=== PATIENT | male | born 1955 | race Caucasian/White ===

== ENCOUNTER → 2017-09-05 | Outpatient (CLI) | payer OTHER ==
--- NOTE | 2017-09-05 13:50 | XR ---
EXAMINATION TYPE: XR cervical spine limited DATE OF EXAM: 09/05/2017 TECHNIQUE: Frontal, lateral,and open mouth view of the cervical spine are obtained. HISTORY: Cervicalgia M54.2 history of fracture at age 16 per patient. COMPARISON: None FINDINGS: The cervical spine is visualized in its entirety from C1 thru the top of T1 level, there i s grade 1 retrolisthesis of C4 on C5 without evidence of acute fracture or dislocation. The pre-vert ebral soft tissue appears within normal limits. The C1-C2 articulation is within normal limits on th e open mouth view. There is ossific fusion or bridging osteophyte involving spinous processes at C4-C 5 level. Vertebral body heights are maintained. There is mild disc space narrowing C3-C4 levels. There is mild to moderate disc space narrowing and spurring C4-C5 level. There is moderate disc space narrowing wi th mild to moderate spurring C5-C6 level. There is mild disc space narrowing C6-C7 level. C7-T1 level suboptimally evaluated without dedicated swimmer's view. There is multilevel uncovertebral facet art hropathy, left greater than right most prominent mid cervical spine. Some vascular calcification left carotid bulb is felt present in the overlying soft tissue. IMPRESSION: Spondylolisthesis C4-C5 level. Multilevel degenerative changes as detailed above
== END | disposition home or self-care (01) ==
LOC: RADXRMAIN 12:49
PROVIDERS: ATTEND Family Medicine
DX: M43.16 Spondylolisthesis, lumbar region (principal); M47.816 Spondylosis without myelopathy or radiculopathy, lumbar region
CPT/HCPCS: 72040

== ENCOUNTER → 2017-09-27 | Outpatient (CLI) | payer OTHER ==
[2017-09-27 13:03] LABS: HCT 37.4 % (39.0-53.0); HGB 12.3 gm/dL (13.0-17.5); MCH 27.5 pg (25.0-35.0); MCHC 32.9 g/dL (31.0-37.0); MCV 83.6 fL (80.0-100.0); Platelet Count 319 k/uL (150-450); RBC 4.48 m/uL (4.30-5.90); RDW 13.9 % (11.5-15.5); WBC 7.3 k/uL (3.8-10.6)
[2017-09-27 13:16] LABS: Anion Gap 12 mmol/L; Blood Urea Nitrogen 14 mg/dL (9-20); Carbon Dioxide 26 mmol/L (22-30); Chloride 102 mmol/L (98-107); Glucose 123 mg/dL (74-99); Potassium 4.6 mmol/L (3.5-5.1); Sodium 140 mmol/L (137-145)
== END | disposition home or self-care (01) ==
LOC: LABWHC1 12:18
PROVIDERS: ATTEND Internal Medicine Clinical Cardiac Electrophysiology
DX: I47.1 Supraventricular tachycardia (principal); I10 Essential (primary) hypertension
CPT/HCPCS: 36415; 80048; 85027

== ENCOUNTER 2017-10-06 10:45 | Day surgery (SDC) | payer OTHER ==
[2017-09-26 14:24] VITALS: BMI 30.7
[2017-10-06] MEDS: SODIUM CHLORIDE 0.9% 1,000 ML IV SCH (11:19)
[2017-10-06 11:35] LABS: Glucose,Whole Blood 178 mg/dL (75-99)
[2017-10-06] MEDS ORDERED: MIDAZOLAM 2 MG/2 ML VIAL ONE (12:50)
[2017-10-06] MEDS ORDERED: fentaNYL (PF) 50 MCG/ML 2 ML AMP ONE (12:50)
[2017-10-06] MEDS ORDERED: ISOPROTERENOL 250 MCG/1.25 ML SYR IV ONE (12:50)
[2017-10-06] MEDS ORDERED: LIDOCAINE 2% INJ 20 MG/ML SQ ONE ×3 (13:28→13:50)
[2017-10-06] MEDS ORDERED: HEPARIN SODIUM (1,000 UNIT/ML) 1,000 UNIT in SODIUM CHLORIDE 0.9% 1,000 ML IRRIGATION ONE (15:06)
[2017-10-06 15:55] LABS: Glucose,Whole Blood 123 mg/dL (75-99)
[2017-10-06] MEDS ORDERED: ACETAMINOPHEN IV (For NPO) 1,000 MG/100 ML VIAL IVPB ONE (15:56)
[2017-10-06] MEDS ORDERED: ACETAMINOPHEN TAB 325 MG TAB PO PRN (16:29)
[2017-10-06 16:50] VITALS: RESP 18
[2017-10-06] MEDS ORDERED: ACETAMINOPHEN IV (For NPO) 1,000 MG in EMPTY BAG 1 BAG IVPB ONE (17:00)
[2017-10-06 17:14] LABS: Glucose,Whole Blood 150 mg/dL (75-99)
[2017-10-06] MEDS: LACTATED RINGERS 1,000 ML IV SCH ×2 (18:19→18:20)
[2017-10-06] MEDS: HYDROcodone/APAP 5-325MG 1 EACH TAB PO PRN (18:41)
[2017-10-06] MEDS: METOPROLOL TARTRATE 25 MG TAB PO SCH (20:09)
[2017-10-06] MEDS: metFORMIN 500 MG TAB PO SCH (20:09)
--- NOTE | 2017-10-06 20:52 | CE ---
CARDIAC ELECTROPHYSIOLOGY REPORT This is a 62-year-old male patient who has recurrent supraventricular tachycardia, adenosine-sensitive, and he was brought in for diagnostic EP study and radiofrequency ablation. His diltiazem and metoprolol were discontinued. Patient was brought to the EP lab in a fasting state. Written informed consent was obtained prior to the procedure. The right and left groins were prepped and draped as per protocol. Venous sheaths were placed. The left axillary vein was also accessed and the coronary sinus catheter was placed via an appropriately-sized sheath. High right atrial catheter, HIS bundle catheter, and RV catheter were placed and later, as the tachycardia was very easily inducible and sometimes spontaneously inducible, a mapping ablation catheter was also placed in the right heart. Sinus cycle length 573 milliseconds, AK interval 160 milliseconds, QRS 88 milliseconds, QT 320 milliseconds. AH interval 86 milliseconds. HV interval 31 milliseconds. The tachycardia was very easily inducible with atrial pacing. Tachycardia cycle length of about 430 milliseconds. Ventricular pacing of VA/AV response was noted consistent with atrial tachycardia. The P wave morphology was negative in the inferior leads and also immediately negative in lead V1, consistent with a low right atrial focus. Three-D mapping of the right atrium was performed. The tachycardia was localized to the anterior right atrium about 3.9 cm anterior to the os of the coronary sinus at the same level. At the best bipolar and unipolar site, RF ablation was applied and the tachycardia was terminated. Following that, bolus lesions were applied around the site and the tachycardia was completely eliminated and could not be re-induced despite atrial pacing as well as high-dose Isuprel. Sinus node recovery time was 684 milliseconds, VA Wenckebach block 230 milliseconds, AV node Wenckebach block 310 milliseconds. No delta waves. No slow pathway conduction. No SVT induced with the EP study during Isuprel. All catheters were then removed and the patient was transferred back to telemetry. RESULT: EP study revealing focal atrial tachycardia about 3.9 cm anterior to the coronary sinus os and at the same level. Successful mapping and ablation was performed. The tachycardia was rendered non-inducible. PLAN: Discontinue diltiazem. Continue metoprolol for now, and later we will stop metoprolol and increase dose of FABBY inhibitors. MMODL / IJN: [id number] /
[2017-10-07] MEDS ORDERED: ALPRAZolam 0.5 MG TAB PO STA (02:29)
[2017-10-07] MEDS: HYDROcodone/APAP 5-325MG 1 EACH TAB PO PRN (02:42)
[2017-10-07] MEDS: LACTATED RINGERS 1,000 ML IV SCH (05:28)
[2017-10-07 06:55] LABS: Glucose,Whole Blood 136 mg/dL (75-99)
[2017-10-07] MEDS: SODIUM CHLORIDE 0.9% 1,000 ML IV SCH (08:42)
[2017-10-07] MEDS ORDERED: LISINOPRIL 10 MG TAB PO SCH (09:00)
[2017-10-07] MEDS ORDERED: PANTOPRAZOLE 40 MG TABLET PO SCH (09:00)
[2017-10-07] MEDS ORDERED: ALLOPURINOL 100 MG TAB PO SCH (09:00)
[2017-10-07] MEDS: METOPROLOL TARTRATE 25 MG TAB PO SCH (09:34)
[2017-10-07] MEDS: metFORMIN 500 MG TAB PO SCH (09:34)
[2017-10-07 11:09] VITALS: BP 132/74; PULSE 91; TEMP 97.5
[2017-10-07 11:59] LABS: Glucose,Whole Blood 134 mg/dL (75-99)
--- NOTE | 2017-10-07 13:12 | P.DS ---
Providers Attending physician: Jim Mcdaniel Primary care physician: [facility] Course: Patient is doing well. He denies any pleuritic chest discomfort no dizziness lightheadedness palpitations. He's been ablating the hallways. On examination he is afebrile 97.5F pulse rate in the 80s and 90s, blood pressure 132/74 mmHg 95% pulse ox on room air heart sounds S1-S2 normal no murmurs or gallops no rub breath sounds are clear no rhonchi no crackles access sites have healed well with minimal tenderness no swelling no hematoma Impression Focal right atrial tachycardia anterior to the coronary sinus about 3.9 cm, successful ablation and tachycardias rendered noninducible Hypertension Suggest Stop diltiazem. The patient does not like the effects of diltiazem Continue metoprolol low-dose, continue lisinopril home blood pressure monitoring and I may consider increasing lisinopril dose if his blood pressure is consistently above 130/80 mmHg Plan - Discharge Summary Discharge Rx Participant: No New Discharge Prescriptions: Discontinued RX: Diltiazem Cd [Cardizem CD] 120 mg PO DAILY No Action RX: Pantoprazole Sodium [Protonix] 40 mg PO DAILY RX: metFORMIN HCL [Glucophage] 1,000 mg PO BID RX: Lisinopril [Zestril] 10 mg PO DAILY RX: Allopurinol [Zyloprim] 200 mg PO QAM RX: Metoprolol Tartrate [Lopressor] 25 mg PO BID #60 tab RX: Ibuprofen 800 mg PO BID Discharge Medication List RX: Allopurinol [Zyloprim] 200 mg PO QAM 09/03/17 [History] RX: Lisinopril [Zestril] 10 mg PO DAILY 09/03/17 [History] RX: Pantoprazole Sodium [Protonix] 40 mg PO DAILY 09/03/17 [History] RX: metFORMIN HCL [Glucophage] 1,000 mg PO BID 09/03/17 [History] RX: Metoprolol Tartrate [Lopressor] 25 mg PO BID #60 tab 09/04/17 [Rx] RX: Ibuprofen 800 mg PO BID 10/02/17 [History] Follow up Appointment(s)/Referral(s): Jim Mcdaniel MD [STAFF PHYSICIAN] - 2 Weeks (Follow up appointment is October 22 at 2:45pm) Patient Instructions/Handouts: Electrophysiology Study (DC) Activity/Diet/Wound Care/Special Instructions: Post EP study - Ablation instructions 1. Keep access sites dry for 2 days. 2. No heavy lifting or straining for 2 days. 3. Avoid bending the hips repeatedly for 2 days. 4. You may go up and down stairs slowly Call if the following is noted 1. Bleeding, increasing swelling or pain at the access sites. 2. Increasing chest discomfort, especially upon taking a deep breath. 3. Increasing shortness of breath, at rest or with exertion. 4. Undue cough / phlegm 5. Difficulty or pain while swallowing. 6. Pain or change in color in the extremities. 7. Fever, chills, rigors. 8. Increasing headache or neurologic symptoms. 9. Dizziness, fainting, palpitations Stop diltiazem Continue all other medications Follow-up Dr. Gandhi in 4 weeks Follow-up Dr. Conner end 2 weeks
[2017-10-07 14:49] LABS: Hemoglobin A1C 7.1 % (4.0-6.0)
== END 2017-10-07 13:46 | disposition home or self-care (01) ==
LOC: CATHEP 10:45 → 3OBS 15:07 → CATHEP 10-07 13:46
PROVIDERS: ATTEND Internal Medicine Clinical Cardiac Electrophysiology
DX: I47.1 Supraventricular tachycardia (principal); I10 Essential (primary) hypertension; E11.9 Type 2 diabetes mellitus without complications; Z82.49 Family history of ischemic heart disease and other diseases of the circulatory system; K21.9 Gastro-esophageal reflux disease without esophagitis; M10.9 Gout, unspecified; Z79.84 Long term (current) use of oral hypoglycemic drugs; Z79.899 Other long term (current) drug therapy; Z79.1 Long term (current) use of non-steroidal anti-inflammatories (NSAID)
CPT/HCPCS: 93623; 93613; 93653; 83036; C1894; C1769 ×2; C1730 ×3; C1893; C1732; J2001; J2250; J3010; J1644; J0131

== ENCOUNTER → 2017-11-15 | Outpatient (CLI) | payer OTHER ==
[2017-11-15 10:24] LABS: HCT 40.5 % (39.0-53.0); HGB 13.5 gm/dL (13.0-17.5); MCH 26.5 pg (25.0-35.0); MCHC 33.2 g/dL (31.0-37.0); MCV 79.8 fL (80.0-100.0); Mean Platelet Volume 6.5; Platelet Count 345 k/uL (150-450); RBC 5.07 m/uL (4.30-5.90); RDW 14.1 % (11.5-15.5); WBC 10.4 k/uL (3.8-10.6)
[2017-11-15 10:38] LABS: Anion Gap 9 mmol/L; Blood Urea Nitrogen 22 mg/dL (9-20); C Reactive Protein 16.3 mg/L (<10.0); Carbon Dioxide 30 mmol/L (22-30); Chloride 97 mmol/L (98-107); Glucose 128 mg/dL (74-99); Potassium 4.7 mmol/L (3.5-5.1); Sodium 136 mmol/L (137-145)
[2017-11-15 11:17] LABS: Erythrocyte Sedimentation Rate 20 mm/hr (0-15)
== END | disposition home or self-care (01) ==
LOC: LABWHC1 08:57
PROVIDERS: ATTEND Family Medicine
DX: R89.9 Unspecified abnormal finding in specimens from other organs, systems and tissues (principal); M35.3 Polymyalgia rheumatica
CPT/HCPCS: 36415; 80048; 85027; 85652; 86140

== ENCOUNTER → 2017-11-28 | Outpatient (CLI) | payer OTHER ==
[2017-11-28 13:08] LABS: C Reactive Protein 60.5 mg/L (<10.0); Potassium 4.7 mmol/L (3.5-5.1); Uric Acid 4.8 mg/dL (3.5-8.5)
[2017-11-28 13:21] LABS: T4, Free (Free Thyroxine) 1.13 ng/dL (0.78-2.19)
[2017-11-28 19:27] LABS: Rheumatoid Factor 6 IU/mL (0-15)
[2017-11-28 19:35] LABS: Vitamin D 25 Hydroxy 20.6 ng/mL (30.0-100.0)
[2017-11-28 20:06] LABS: Cyclic Citrullinated Pep IgG NEGATIVE (NEGATIVE)
[2017-11-29 06:05] LABS: Angiotensin-1 Converting Enz. 8 U/L (8-52)
[2017-11-29 11:02] LABS: HLA B27 NEGATIVE
== END | disposition home or self-care (01) ==
LOC: LABWHC1 12:35
PROVIDERS: ATTEND Physician Assistant Medical
DX: M13.0 Polyarthritis, unspecified (principal); R00.2 Palpitations
CPT/HCPCS: 36415; 80051; 82164; 82306; 82550; 83520; 84439; 84443; 84450; 84460; 84550; 85652; 86038; 86140; 86200; 86431; 86812

== ENCOUNTER → 2017-12-20 | Outpatient (CLI) | payer OTHER ==
[2017-12-20 12:01] LABS: HCT 37.7 % (39.0-53.0); HGB 12.5 gm/dL (13.0-17.5); MCH 26.4 pg (25.0-35.0); MCHC 33.1 g/dL (31.0-37.0); MCV 79.7 fL (80.0-100.0); Mean Platelet Volume 6.8; Platelet Count 300 k/uL (150-450); RBC 4.73 m/uL (4.30-5.90); RDW 15.7 % (11.5-15.5); WBC 7.4 k/uL (3.8-10.6)
[2017-12-20 12:11] LABS: Anion Gap 16 mmol/L; Blood Urea Nitrogen 21 mg/dL (9-20); Calcium 9.9 mg/dL (8.4-10.2); Carbon Dioxide 22 mmol/L (22-30); Chloride 98 mmol/L (98-107); Glucose 249 mg/dL (74-99); Potassium 5.1 mmol/L (3.5-5.1); Sodium 136 mmol/L (137-145)
== END | disposition home or self-care (01) ==
LOC: LABPAT 11:33
PROVIDERS: ATTEND Internal Medicine Clinical Cardiac Electrophysiology
DX: I10 Essential (primary) hypertension (principal); I47.1 Supraventricular tachycardia
CPT/HCPCS: 36415; 80048; 85027

== ENCOUNTER 2017-12-30 06:25 | Day surgery (SDC) | payer OTHER ==
[2017-12-25 09:21] VITALS: BMI 28.5
[2017-12-30] MEDS ORDERED: SODIUM CHLORIDE 0.9% 1,000 ML IV SCH (06:34)
[2017-12-30] MEDS ORDERED: LACTATED RINGERS 1,000 ML IV SCH (06:34)
[2017-12-30 07:30] LABS: Glucose,Whole Blood 191 mg/dL (75-99)
[2017-12-30] MEDS ORDERED: NEOSTIGMINE 1 MG/ML 10 ML VIAL ONE (08:01)
[2017-12-30] MEDS ORDERED: MIDAZOLAM 2 MG/2 ML VIAL ONE (08:01)
[2017-12-30] MEDS ORDERED: ROCURONIUM BROMIDE 10 MG/ML 10 ML VIAL IV ONE (08:01)
[2017-12-30] MEDS ORDERED: SUCCINYLCHOLINE CHLORIDE 100 MG/5 ML SYR IV ONE (08:01)
[2017-12-30] MEDS ORDERED: GLYCOPYRROLATE 0.2 MG/ML 2 ML VIAL ONE (08:01)
[2017-12-30] MEDS ORDERED: fentaNYL (PF) 50 MCG/ML 2 ML AMP ONE (08:01)
[2017-12-30] MEDS ORDERED: PROPOFOL 10 MG/ML 20 ML VIAL IV ONE (08:01)
[2017-12-30] MEDS ORDERED: LIDOCAINE 2% INJ 20 MG/ML SQ ONE (08:41)
[2017-12-30] MEDS ORDERED: HEPARIN SODIUM (1,000 UNIT/ML) 1,000 UNIT in SODIUM CHLORIDE 0.9% 1,000 ML IRRIGATION ONE (09:37)
[2017-12-30] MEDS ORDERED: LACTATED RINGERS 1,000 ML IV ONE (10:45)
[2017-12-30] MEDS ORDERED: ACETAMINOPHEN TAB 325 MG TAB PO PRN (12:46)
[2017-12-30] MEDS ORDERED: PANTOPRAZOLE 40 MG TABLET PO PRN (12:49)
[2017-12-30] MEDS ORDERED: ACETAMINOPHEN IV (For NPO) 1,000 MG in EMPTY BAG 1 BAG IVPB ONE (13:00)
[2017-12-30] MEDS ORDERED: ACETAMINOPHEN IV (For NPO) 1,000 MG/100 ML VIAL IVPB ONE (13:30)
--- NOTE | 2017-12-30 13:50 | CE ---
CARDIAC ELECTROPHYSIOLOGY REPORT 62-year-old male patient with recurrent palpitations despite successful ablation about 2 months back for supraventricular tachycardia, atrial tachycardia in the right atrium. He was quite symptomatic and his rates were not controlled despite diltiazem and beta blockers. Patient brought to the EP lab in a fasting state. Written informed consent was obtained prior to the procedure. The right and left groins were prepped and draped as per protocol. Four venous sheaths were placed, 2 in the right side and 2 on the left femoral vein. The initial part of the procedure of mapping was performed under MAC. The ablation portion and atrial flutter ablation portion was performed under general anesthesia. Initially four diagnostic catheters were placed in the right heart; in the high right atrial area, His bundle area, RV and coronary sinus. Sinus cycle length 540 millisecond. He was in sinus tachycardia at the start of the study. ID interval 129 milliseconds, QRS 99 milliseconds, QT 289 milliseconds. AH interval 67 milliseconds, HV interval 33 milliseconds. Tachycardias were easily inducible with straight pacing from the high right atrium up from the coronary sinus. Ventricular pacing was performed from the right ventricle and VAAV response was noted repeatedly confirming that this was an atrial tachycardia. An atypical AV eryn reentrant tachycardia was excluded. CS pacing was performed. RV pacing was performed. High right atrial pacing was performed. Later Isuprel was used. Sinus node recovery times at 500 milliseconds was 705 milliseconds, corresponding corrected sinus node recovery times were within normal limits. This was a normal RP tachycardia, cycle length of about 430 milliseconds. V to HRA was 330 milliseconds, V to His distal 330 milliseconds, V to CS os was 309 milliseconds and V to CS distal was 354 milliseconds. The tachycardia was very with CS pacing. A PentaRay catheter was then placed in the right atrium. An intracardiac echo was performed. Three-dimensional shell of the right atrium was made. An activation map was performed and a detailed map was performed. Focal tachycardia was noted in the right atrial isthmus exactly mid isthmus. Thereafter, the mapping ablation catheter was placed and further detailed mapping of the right atrial isthmus was performed. Based upon the bipolar signals as well as the unipolar signals, this appeared to be a deep tachycardia. The best unipolar signal with earliest bipolar electrograms were marked. RF ablation here resulted in termination of the tachycardia. However, the patient was snoring and therefore the general anesthesia was performed for greater catheter stability. Under general anesthesia, RF ablation was performed at the site and around it and the tachycardia was rendered completely noninducible. However, since this was a mid right atrial isthmus tachycardia, an ablation was performed in the cava tricuspid isthmus. There was a gap between the tricuspid anulus and the ablation lesions with a focal tachycardia as well as another gap in from this site to the eustachian ridge, therefore increasing the propensity for future atrial flutter. Therefore, RF ablation to line was made from the tricuspid anulus to the eustachian ridge exactly over the previous RF ablation and a complete line of block was made. This was interrogated with pacing maneuvers and bidirectional block was noted. Isthmus conduction times are very short because this right atrium was completely normal in size, in fact, quite small in size, but clear bidirectional block. The line was interrogated with 100% grid and there were no anatomic gaps. Following that, again high-dose Isuprel as well as during the washout burst stimulation was performed from the high right atrium and from the coronary sinus without induction of even a single PAC or atrial tachycardia beat. All catheters were then removed the end of the procedure and patient transferred to telemetry. RESULTS: 1. Diagnostic EP study revealing focal atrial tachycardia from the mid right atrial caval tricuspid isthmus status post successful ablation. 2. This was a deep focus based upon the bipolar and unipolar signal morphology. 3. Successful termination with the first RF lesion obtained. 4. Typical atrial flutter ablation also performed as described above for reasons described as outlined above. 5. Patient tolerated procedure well without any acute complications. MMODL / IJN: [id number] /
--- NOTE | 2017-12-30 13:56 | LTR ---
December 30, [address] Gandhi: I had the pleasure of seeing Mr. Rodolfo Rebolledo in electrophysiology consultation. Rodolfo came back with recurrent palpitations once again after successful ablation. This was a slow tachycardia, but I took him back to the EP lab because he was drug refractory. The tachycardia was once again a focal tachycardia in the right atrial isthmus. This was a very thick area of the right atrium and it was a deep tachycardia but we were again successful ablating this tachycardia and terminating it. Since this was exactly in the area of an atrial flutter ablation, I also performed an atrial flutter ablation to avoid future risk of atrial flutter because of the previous ablation. I asked him to stop metoprolol but continue diltiazem and take aspirin for 1 month only. Thank you for entrusting me with the care of your patient. Warm regards. Sincerely, EMILY / HEBERTN: [id number] /
[2017-12-30] MEDS: HYDROcodone/APAP 5-325MG 1 EACH TAB PO PRN ×2 (14:52→20:32)
[2017-12-30 17:28] LABS: Glucose,Whole Blood 316 mg/dL (75-99)
[2017-12-30] MEDS: metFORMIN 500 MG TAB PO SCH (17:30)
[2017-12-30] MEDS ORDERED: DILTIAZEM CD 120 MG CAP.ER.24H PO STA (20:00)
[2017-12-30] MEDS: predniSONE 5 MG TAB PO SCH (20:29)
[2017-12-30 21:08] LABS: Glucose,Whole Blood 162 mg/dL (75-99)
[2017-12-31 06:53] LABS: Glucose,Whole Blood 150 mg/dL (75-99)
[2017-12-31 07:48] VITALS: RESP 18
--- NOTE | 2017-12-31 08:15 | P.DS ---
Providers Attending physician: Jim Mcdaniel Primary care physician: [facility] Course: Patient is doing well. He is sitting in a chair comfortably but his resting heart rate is 120-130 beats a minute sinus tachycardia. Twelve-lead ECG yesterday showed sinus tachycardia with upright T waves in the inferior leads. This morning once again it shows upright P waves in the inferior leads consistent with sinus tachycardia. Yesterday when he came to the lab he was also in sinus tachycardia prior to induction of his SVT I plan to check his TSH today He denies any chest discomfort no dizziness lightheadedness. His groins of healed well he has no cough expectoration On examination heart sounds are tachycardic but normal no murmurs no gallops no rub Breath sounds are clear no rhonchi no crackles Abdomen soft nontender Extremities warm no edema in the groins of healed well there is no hematoma Impression Atrial tachycardia, focal, in the mid isthmus of the cavo tricuspid isthmus on the right atrium Successful ablation of this deep focus Since 2 narrow corridors were left within the isthmus, after this ablation set, Therefore An atrial flutter RF line was also made to avoid future risk of atrial flutter Plan Discharge home today stop beta blockers switch to verapamil SR 240 mg by mouth daily TSH level Patient Condition at Discharge: Stable Plan - Discharge Summary Discharge Rx Participant: No New Discharge Prescriptions: New Aspirin 81 mg PO DAILY #31 chewable Verapamil Sr [Isoptin Sr] 240 mg PO DAILY #90 tablet.er Discontinued Metoprolol Tartrate [Lopressor] 25 mg PO QID PRN PRN Reason: HR>140 Diltiazem Cd [Cardizem Cd] 120 mg PO DAILY No Action Pantoprazole Sodium [Protonix] 40 mg PO DAILY PRN PRN Reason: Indigestion metFORMIN HCL [Glucophage] 1,000 mg PO BID Lisinopril [Zestril] 10 mg PO DAILY Allopurinol [Zyloprim] 200 mg PO QAM predniSONE 15 mg PO BID Albuterol Nebulized [Ventolin Nebulized] 2.5 mg INHALATION Q6H PRN PRN Reason: Shortness Of Breath Iron (Unknown Dose) 1 tab PO DAILY Discharge Medication List Allopurinol [Zyloprim] 200 mg PO QAM 09/03/17 [History] Lisinopril [Zestril] 10 mg PO DAILY 09/03/17 [History] Pantoprazole Sodium [Protonix] 40 mg PO DAILY PRN 09/03/17 [History] metFORMIN HCL [Glucophage] 1,000 mg PO BID 09/03/17 [History] Albuterol Nebulized [Ventolin Nebulized] 2.5 mg INHALATION Q6H PRN 12/03/17 [ History] predniSONE 15 mg PO BID 12/03/17 [History] Iron (Unknown Dose) 1 tab PO DAILY 12/25/17 [History] Aspirin 81 mg PO DAILY #31 chewable 12/30/17 [Rx] Verapamil Sr [Isoptin Sr] 240 mg PO DAILY #90 tablet.er 12/31/17 [Rx] Follow up Appointment(s)/Referral(s): Jim Mcdaniel MD [STAFF PHYSICIAN] - 2 Weeks Activity/Diet/Wound Care/Special Instructions: Post EP study - Ablation instructions 1. Keep access sites dry for 2 days. 2. No heavy lifting or straining for 2 days. 3. Avoid bending the hips repeatedly for 2 days. 4. You may go up and down stairs slowly Call if the following is noted 1. Bleeding, increasing swelling or pain at the access sites. 2. Increasing chest discomfort, especially upon taking a deep breath. 3. Increasing shortness of breath, at rest or with exertion. 4. Undue cough / phlegm 5. Difficulty or pain while swallowing. 6. Pain or change in color in the extremities. 7. Fever, chills, rigors. 8. Increasing headache or neurologic symptoms. 9. Dizziness, fainting, palpitations Follow-up with Dr. Conner in 2 weeks Discontinue metoprolol, stop diltiazem Start the verapamil SR 240 mg by mouth daily in the morning Continue all other medications as before Aspirin for one month TSH level prior to discharge Discharge Disposition: HOME SELF-CARE
[2017-12-31] MEDS: predniSONE 5 MG TAB PO SCH (08:31)
[2017-12-31] MEDS: metFORMIN 500 MG TAB PO SCH (08:31)
[2017-12-31] MEDS ORDERED: DILTIAZEM CD 240 MG CAP.ER.24H PO SCH (09:00)
[2017-12-31] MEDS ORDERED: DILTIAZEM CD 120 MG CAP.ER.24H PO SCH (09:00)
[2017-12-31] MEDS ORDERED: LISINOPRIL 10 MG TAB PO SCH (09:00)
[2017-12-31] MEDS ORDERED: ALLOPURINOL 100 MG TAB PO SCH (09:00)
[2017-12-31 11:45] VITALS: BP 102/69; PULSE 112; TEMP 98.2
[2017-12-31 12:20] LABS: Glucose,Whole Blood 142 mg/dL (75-99)
[2017-12-31 13:52] LABS: Hemoglobin A1C 8.7 % (4.0-6.0)
== END 2017-12-31 12:45 | disposition home or self-care (01) ==
LOC: CATHEP 06:25 → 3OBS 12:34 → CATHEP 12-31 12:45
PROVIDERS: ATTEND Internal Medicine Clinical Cardiac Electrophysiology
DX: I47.1 Supraventricular tachycardia (principal); I10 Essential (primary) hypertension; E11.9 Type 2 diabetes mellitus without complications; Z79.84 Long term (current) use of oral hypoglycemic drugs; Z82.49 Family history of ischemic heart disease and other diseases of the circulatory system; Z98.890 Other specified postprocedural states; Z79.899 Other long term (current) drug therapy
CPT/HCPCS: 93623; 93662; 93613; 93653; 84443; 83036; C1769 ×3; C1894; C1893; C1730 ×2; C1731; C1759; C1732; J2001; J2250; J2710; J3010; J1644; J0131; J0330; J2704; J7512 ×2

== ENCOUNTER 2018-01-12 06:49 | Inpatient (IN) | payer OTHER ==
[2018-01-12] MEDS ORDERED: SODIUM CHLORIDE 0.9% 1,000 ML IV STA (07:12)
[2018-01-12] MEDS ORDERED: DILTIAZEM 5 MG/1 ML (25ML VIAL) IV STA (07:12)
[2018-01-12] MEDS ORDERED: DILTIAZEM 50 MG in SODIUM CHLORIDE 0.9% 40 ML IV ONE (07:12)
--- NOTE | 2018-01-12 07:23 | ED ---
General Adult HPI - General Chief complaint: Arrhythmia/Palpitations Stated complaint: irregular heart rate Time Seen by Provider: 01/12/18 07:00 Source: patient, RN notes reviewed Mode of arrival: ambulatory Limitations: no limitations - History of Present Illness Initial comments: This is a 62-year-old male with a past medical history significant for focal atrial tachycardia. Patient comes in today because he woke up this morning and felt his heart racing. Patient states had 2 ablations in the past. Is well aware of when he is having tachycardia. Patient states she's had no chest pain or difficulty breathing or shortness of breath. Patient denies any recent fever chills or cough. Patient denies any energy drinks or a lot of caffeine intake. Patient denies any abdominal pain patient denies nausea vomiting diarrhea per patient denies headache patient denies numbness weakness. Patient denies lightheadedness dizziness or near syncopal episode. - Related Data Home Medications Medication Instructions Recorded Confirmed Allopurinol [Zyloprim] 200 mg PO QAM 09/03/17 01/12/18 Lisinopril [Zestril] 10 mg PO DAILY 09/03/17 01/12/18 Pantoprazole Sodium [Protonix] 40 mg PO DAILY PRN 09/03/17 01/12/18 metFORMIN HCL [Glucophage] 1,000 mg PO BID 09/03/17 01/12/18 Albuterol Nebulized [Ventolin 2.5 mg INHALATION Q6H PRN 12/03/17 01/12/18 Nebulized] predniSONE 15 mg PO BID 12/03/17 01/12/18 Ferrous Sulfate [Feosol] 325 mg PO DAILY 01/12/18 01/12/18 traMADol HCL/ACETAMINOPHEN 1 tab PO Q8H PRN 01/12/18 01/12/18 [Ultracet 37.5-325] Previous Rx's Medication Instructions Recorded Aspirin 81 mg PO DAILY #31 chewable 12/30/17 Verapamil Sr [Isoptin Sr] 240 mg PO DAILY #90 tablet.er 12/31/17 Allergies Allergy/AdvReac Type Severity Reaction Status Date / Time No Known Allergies Allergy Verified 01/12/18 07:19 Review of Systems ROS Statement: Those systems with pertinent positive or pertinent negative responses have been documented in the HPI. ROS Other: All systems not noted in ROS Statement are negative. Past Medical History Past Medical History: Diabetes Mellitus, GERD/Reflux, Hypertension, Supraventricular Tachycardia (SVT) Additional Past Medical History / Comment(s): See Dr Mcdaniel's H&P. New diagnosis of anemia. Hx SVT, gout, and bronchitis. polymyalgia,atrial tachycardia History of Any Multi-Drug Resistant Organisms: None Reported Past Surgical History: Ablation, Tonsillectomy Additional Past Surgical History / Comment(s): detached retina right eye surgery Past Anesthesia/Blood Transfusion Reactions: No Reported Reaction Past Psychological History: No Psychological Hx Reported Smoking Status: Never smoker Past Alcohol Use History: None Reported Past Drug Use History: None Reported - Past Family History Father Family Medical History: Cancer, Diabetes Mellitus, Hypertension Additional Family Medical History / Comment(s): CABGx3, Bladder Ca, Lung Ca, heart murmur Mother Family Medical History: Dementia Additional Family Medical History / Comment(s): Brain aneurysm, PAD, PVD General Exam - General Exam Comments Initial Comments: GENERAL: Patient is well-developed and well-nourished. Patient is nontoxic and well- hydrated and is in mild distress. ENT: Neck is soft and supple. No significant lymphadenopathy is noted. Oropharynx is clear. Moist mucous membranes. Neck has full range of motion without eliciting any pain. EYES: The sclera were anicteric and conjunctiva were pink and moist. Extraocular movements were intact and pupils were equal round and reactive to light. Eyelids were unremarkable. PULMONARY: Unlabored respirations. Good breath sounds bilaterally. No audible rales rhonchi or wheezing was noted. CARDIOVASCULAR: There is a regular rate and rhythm without any murmurs gallops or rubs. ABDOMEN: Soft and nontender with normal bowel sounds. No palpable organomegaly was noted. There is no palpable pulsatile mass. SKIN: Skin is clear with no lesions or rashes and otherwise unremarkable. NEUROLOGIC: Patient is alert and oriented x3. Cranial nerves II through XII are grossly intact. Motor and sensory are also intact. Normal speech, volume and content. Symmetrical smile. MUSCULOSKELETAL: Normal extremities with adequate strength and full range of motion. LYMPHATICS: No significant lymphadenopathy is noted PSYCHIATRIC: Normal psychiatric evaluation. Normal interpersonal interactions appears functionally intact in deals appropriately with others. [id number] Limitations: no limitations Course Vital Signs 01/12/18 01/12/18 06:57 08:05 Temperature 97.9 F Pulse Rate 97 130 H Respiratory 18 16 Rate Blood Pressure 137/94 135/79 O2 Sat by Pulse 98 97 Oximetry Medical Decision Making - Medical Decision Making EKG shows atrial fibrillation at 157 bpm QRS 82 QT interval is 240 QTC is 388. EKG shows no ST segment elevation. Chest x-ray shows no acute abnormality. I placed the patient on a Cardizem drip after bolus and the patient 5 g of Cardizem. Patient's heart rate did not come down after having nausea given another 5 mg of Cardizem. Patient's already started to slow down. I spoke with Dr. lloyd he agrees to admit the patient I admitted the patient I continue the patient on Cardizem and I started the patient on heparin. - Lab Data Result diagrams: 01/12/18 07:00 01/12/18 07:00 Lab Results 01/12/18 01/12/18 01/12/18 Range/Units 07:00 07:00 07:00 WBC 9.0 (3.8-10.6) k/uL RBC 4.20 L (4.30-5.90) m/uL Hgb 11.2 L (13.0-17.5) gm/dL Hct 32.7 L (39.0-53.0) % MCV 77.9 L (80.0-100.0) fL MCH 26.8 (25.0-35.0) pg MCHC 34.4 (31.0-37.0) g/dL RDW 17.0 H (11.5-15.5) % Plt Count 387 (150-450) k/uL Neutrophils % 72 % Lymphocytes % 19 % Monocytes % 6 % Eosinophils % 0 % Basophils % 0 % Neutrophils # 6.5 (1.3-7.7) k/uL Lymphocytes # 1.7 (1.0-4.8) k/uL Monocytes # 0.5 (0-1.0) k/uL Eosinophils # 0.0 (0-0.7) k/uL Basophils # 0.0 (0-0.2) k/uL Poikilocytosis Slight Anisocytosis Slight Microcytosis Slight PT (9.0-12.0) sec INR (<1.2) APTT (22.0-30.0) sec Sodium 138 (137-145) mmol/L Potassium 4.4 (3.5-5.1) mmol/L Chloride 98 (98-107) mmol/L Carbon Dioxide 28 (22-30) mmol/L Anion Gap 12 mmol/L BUN 16 (9-20) mg/dL Creatinine 0.53 L (0.66-1.25) mg/dL Est GFR (CKD-EPI)AfAm >90 (>60 ml/min/1.73 sqM) Est GFR (CKD-EPI)NonAf >90 (>60 ml/min/1.73 sqM) Glucose 242 H (74-99) mg/dL Calcium 9.8 (8.4-10.2) mg/dL Magnesium 1.7 (1.6-2.3) mg/dL Total Bilirubin 0.5 (0.2-1.3) mg/dL AST 26 (17-59) U/L ALT 28 (21-72) U/L Alkaline Phosphatase 88 (38-126) U/L Total Creatine Kinase 42 L (55-170) U/L CK-MB (CK-2) 1.6 (0.0-2.4) ng/mL CK-MB (CK-2) Rel Index 3.8 Troponin I <0.012 (0.000-0.034) ng/mL Total Protein 6.0 L (6.3-8.2) g/dL Albumin 3.7 (3.5-5.0) g/dL TSH 2.030 (0.465-4.680) mIU/L Free T4 1.18 (0.78-2.19) ng/dL 01/12/18 Range/Units 07:00 WBC (3.8-10.6) k/uL RBC (4.30-5.90) m/uL Hgb (13.0-17.5) gm/dL Hct (39.0-53.0) % MCV (80.0-100.0) fL MCH (25.0-35.0) pg MCHC (31.0-37.0) g/dL RDW (11.5-15.5) % Plt Count (150-450) k/uL Neutrophils % % Lymphocytes % % Monocytes % % Eosinophils % % Basophils % % Neutrophils # (1.3-7.7) k/uL Lymphocytes # (1.0-4.8) k/uL Monocytes # (0-1.0) k/uL Eosinophils # (0-0.7) k/uL Basophils # (0-0.2) k/uL Poikilocytosis Anisocytosis Microcytosis PT 9.8 (9.0-12.0) sec INR 1.0 (<1.2) APTT 22.9 (22.0-30.0) sec Sodium (137-145) mmol/L Potassium (3.5-5.1) mmol/L Chloride (98-107) mmol/L Carbon Dioxide (22-30) mmol/L Anion Gap mmol/L BUN (9-20) mg/dL Creatinine (0.66-1.25) mg/dL Est GFR (CKD-EPI)AfAm (>60 ml/min/1.73 sqM) Est GFR (CKD-EPI)NonAf (>60 ml/min/1.73 sqM) Glucose (74-99) mg/dL Calcium (8.4-10.2) mg/dL Magnesium (1.6-2.3) mg/dL Total Bilirubin (0.2-1.3) mg/dL AST (17-59) U/L ALT (21-72) U/L Alkaline Phosphatase (38-126) U/L Total Creatine Kinase (55-170) U/L CK-MB (CK-2) (0.0-2.4) ng/mL CK-MB (CK-2) Rel Index Troponin I (0.000-0.034) ng/mL Total Protein (6.3-8.2) g/dL Albumin (3.5-5.0) g/dL TSH (0.465-4.680) mIU/L Free T4 (0.78-2.19) ng/dL Critical Care Time Critical Care Time: Yes Total Critical Care Time: 35 Disposition Clinical Impression: Atrial fibrillation with rapid ventricular response Disposition: ADMITTED IP TO THIS HOSP Referrals: Perez Gandhi DO [Primary Care Provider] - 1-2 days Time of Disposition: 08:34
[2018-01-12 07:25] LABS: Anisocytosis Slight; Basophils % (A) 0 %; Eosinophils % (A) 0 %; HCT 32.7 % (39.0-53.0); HGB 11.2 gm/dL (13.0-17.5); Lymphocytes # (A) 1.7 k/uL (1.0-4.8); Lymphocytes % (A) 19 %; MCH 26.8 pg (25.0-35.0); MCHC 34.4 g/dL (31.0-37.0); MCV 77.9 fL (80.0-100.0); Mean Platelet Volume 6.6; Microcytosis Slight; Monocytes # (A) 0.5 k/uL (0-1.0); Monocytes % (A) 6 %; Neutrophils # (A) 6.5 k/uL (1.3-7.7); Neutrophils % (A) 72 %; Platelet Count 387 k/uL (150-450); Poikilocytosis Slight
[2018-01-12 07:31] LABS: Prothrombin Time 9.8 sec (9.0-12.0)
[2018-01-12 07:36] LABS: ALT 28 U/L (21-72); AST 26 U/L (17-59); Albumin 3.7 g/dL (3.5-5.0); Alkaline Phosphatase 88 U/L (38-126); Anion Gap 12 mmol/L; Blood Urea Nitrogen 16 mg/dL (9-20); Calcium 9.8 mg/dL (8.4-10.2); Carbon Dioxide 28 mmol/L (22-30); Chloride 98 mmol/L (98-107); Glucose 242 mg/dL (74-99); Magnesium 1.7 mg/dL (1.6-2.3); Potassium 4.4 mmol/L (3.5-5.1); Sodium 138 mmol/L (137-145); Total Bilirubin 0.5 mg/dL (0.2-1.3)
[2018-01-12 07:38] LABS: Partial Thromboplastin Time 22.9 sec (22.0-30.0)
--- NOTE | 2018-01-12 07:39 | XR ---
EXAMINATION TYPE: XR chest 2V DATE OF EXAM: 01/12/2018 COMPARISON: Chest x-ray September 03, 2017 HISTORY: Tachycardia. TECHNIQUE: Frontal and lateral views of the chest are obtained. FINDINGS: There is no focal air space opacity, pleural effusion, or pneumothorax seen. There is juaquin ntration of right hemidiaphragm. The cardiac silhouette size is stable and upper limits of normal. The osseous structures are intact. IMPRESSION: No acute cardiopulmonary process. No significant change from prior.
[2018-01-12 07:41] LABS: Creatine Kinase 42 U/L (55-170)
[2018-01-12 07:51] LABS: T4, Free (Free Thyroxine) 1.18 ng/dL (0.78-2.19)
[2018-01-12 07:53] LABS: Creatine Kinase MB 1.6 ng/mL (0.0-2.4); Troponin I <0.012 ng/mL (0.000-0.034)
[2018-01-12] MEDS ORDERED: NITROGLYCERIN SL TABS 0.4 MG TAB SUBLINGUAL PRN (08:34)
[2018-01-12] MEDS ORDERED: HEPARIN SODIUM,PORCINE 5,000 UNIT/ML 1 ML VIAL IV ONE (08:34)
[2018-01-12] MEDS ORDERED: HEPARIN SODIUM,PORCINE 25,000 UNIT in DEXTROSE 5% IN WATER 500 ML IV SCH ×2 (08:45)
[2018-01-12] MEDS ORDERED: traMADol-ACETAMINOP 37.5-325MG 1 EACH TAB PO STA (09:22)
[2018-01-12] MEDS ORDERED: predniSONE 5 MG TAB PO STA (09:22)
--- NOTE | 2018-01-12 12:07 | P.CRDCN ---
History of Present Illness Consult date: 01/12/18 Requesting physician: Nathanael James Consult reason: atrial fibrillation Chief complaint: Palpitations History of present illness: This is a pleasant 62-year-old gentleman who follows regularly with Dr. Mcdaniel in the office. He has been diagnosed in the past with supraventricular tachycardia for which she has undergone 2 ablations in the past. Patient does have history of diabetes, hypertension. Current home medications include Glucophage thousand milligrams twice a day, verapamil 240 mg daily, Protonix, lisinopril 10 mg daily which according to the patient was recently discontinued because of hypotension, iron tablet daily, and aspirin 81 mg daily. Patient states overall he was doing fairly well, he worked outside yesterday, feeling great. This morning patient states that he felt his heart race fast and go irregular. For this reason he came to the emergency room for further evaluation. EKG on arrival here showed atrial fibrillation with a rapid ventricular response. Patient was initiated on IV Cardizem and heparin. At the time of my examination he continues to be in atrial fibrillation, heart rate in the 90s. Chest x-ray shows no acute cardiopulmonary process with no significant change from prior. White blood cell count is normal, hemoglobin 11.2, platelet count 387. Sodium 138, potassium 4.4, BUN 16, creatinine 0.5. Magnesium level I.7, troponin 0.012. TSH 2.03, free T4 1.18. Past Medical History Past Medical History: Diabetes Mellitus, GERD/Reflux, Hypertension, Supraventricular Tachycardia (SVT) Additional Past Medical History / Comment(s): SVT, atrial tachycardia, NIDDM type II, anemia, gout, bronchitis, possible polymalagia-on steroids at this time. History of Any Multi-Drug Resistant Organisms: None Reported Past Surgical History: Ablation, Tonsillectomy Additional Past Surgical History / Comment(s): 12/30/16 cardiac ablation, prior cardiac ablation, colonoscopy, detached retina right eye surgery Past Anesthesia/Blood Transfusion Reactions: No Reported Reaction Smoking Status: Never smoker - Past Family History Father Family Medical History: Cancer, Diabetes Mellitus, Hypertension Additional Family Medical History / Comment(s): CABGx3 when he was in his 80s, Bladder Ca, Lung Ca, paratid cancer. Father at age 90yrs. Mother Family Medical History: Dementia Additional Family Medical History / Comment(s): Brain aneurysm, PAD, PVD. Mother at age 86yrs. Medications and Allergies Home Medications Medication Instructions Recorded Confirmed Type Allopurinol [Zyloprim] 200 mg PO QAM 09/03/17 01/12/18 History Lisinopril [Zestril] 10 mg PO DAILY 09/03/17 01/12/18 History Pantoprazole Sodium [Protonix] 40 mg PO DAILY PRN 09/03/17 01/12/18 History metFORMIN HCL [Glucophage] 1,000 mg PO BID 09/03/17 01/12/18 History Albuterol Nebulized [Ventolin 2.5 mg INHALATION Q6H PRN 12/03/17 01/12/18 History Nebulized] predniSONE 15 mg PO BID 12/03/17 01/12/18 History Aspirin 81 mg PO DAILY #31 chewable 12/30/17 01/12/18 Rx Verapamil Sr [Isoptin Sr] 240 mg PO DAILY #90 tablet.er 12/31/17 01/12/18 Rx Ferrous Sulfate [Feosol] 325 mg PO DAILY 01/12/18 01/12/18 History traMADol HCL/ACETAMINOPHEN 1 tab PO Q8H PRN 01/12/18 01/12/18 History [Ultracet 37.5-325] Allergies Allergy/AdvReac Type Severity Reaction Status Date / Time No Known Allergies Allergy Verified 01/12/18 07:19 Physical Exam Vitals: Vital Signs Temp Pulse Resp BP Pulse Ox 01/12/18 10:53 104 H 16 107/70 99 01/12/18 10:06 122 H 16 117/68 98 01/12/18 09:00 123 H 16 126/74 97 01/12/18 08:05 130 H 16 135/79 97 01/12/18 06:57 97.9 F 97 18 137/94 98 Intake and Output 01/11/18 01/12/18 01/12/18 22:59 06:59 14:59 Other: Weight 88.904 kg PHYSICAL EXAMINATION: HEENT: Head is atraumatic, normocephalic. Pupils equal, round. Neck is supple. There is no elevated jugular venous pressure. HEART EXAMINATION: Heart S1 and S2 irregularly irregular CHEST EXAMINATION: Lungs are clear to auscultation and precussion. No chest wall tenderness is noted on palpation or with deep breathing. ABDOMEN: Soft, nontender. Bowel sounds are heard. No organomegaly noted. EXTREMITIES: 2+ peripheral pulses with no evidence of peripheral edema and no calf tenderness noted. NEUROLOGIC patient is awake, alert and oriented -3. . Results 01/12/18 07:00 01/12/18 07:00 Cardiac Enzymes 01/12/18 01/12/18 Range/Units 07:00 07:00 AST 26 (17-59) U/L CK-MB (CK-2) 1.6 (0.0-2.4) ng/mL Troponin I <0.012 (0.000-0.034) ng/mL Coagulation 01/12/18 Range/Units 07:00 PT 9.8 (9.0-12.0) sec APTT 22.9 (22.0-30.0) sec CBC 01/12/18 Range/Units 07:00 WBC 9.0 (3.8-10.6) k/uL RBC 4.20 L (4.30-5.90) m/uL Hgb 11.2 L (13.0-17.5) gm/dL Hct 32.7 L (39.0-53.0) % Plt Count 387 (150-450) k/uL Comprehensive Metabolic Panel 01/12/18 Range/Units 07:00 Sodium 138 (137-145) mmol/L Potassium 4.4 (3.5-5.1) mmol/L Chloride 98 (98-107) mmol/L Carbon Dioxide 28 (22-30) mmol/L BUN 16 (9-20) mg/dL Creatinine 0.53 L (0.66-1.25) mg/dL Glucose 242 H (74-99) mg/dL Calcium 9.8 (8.4-10.2) mg/dL AST 26 (17-59) U/L ALT 28 (21-72) U/L Alkaline Phosphatase 88 (38-126) U/L Total Protein 6.0 L (6.3-8.2) g/dL Albumin 3.7 (3.5-5.0) g/dL Current Medications Generic Name Dose Route Start Last Admin Trade Name Freq PRN Reason Stop Dose Admin Aspirin 325 mg 01/13/18 09:00 Aspirin PO DAILY NICOL Diltiazem HCl 50 mg/ Sodium 50 mls @ 5 mls/hr 01/12/18 07:12 01/12/18 07:39 Chloride IV 01/12/18 17:11 5 mg/hr .Q10H ONE 5 mls/hr 5 MG/HR Administration Heparin Sodium (Porcine) 25, 500 mls @ 20 mls/hr 01/12/18 08:45 01/12/18 09: 10 000 unit/ Dextrose/Water IV 11.25 units/kg/hr .Q24H NICOL 20 mls/hr Protocol Administration 11.25 UNITS/KG/HR Nitroglycerin 0.4 mg 01/12/18 08:34 Nitrostat SUBLINGUAL Q5M PRN Chest Pain Intake and Output 01/11/18 01/12/18 01/12/18 22:59 06:59 14:59 Other: Weight 88.904 kg 01/12/18 07:00 01/12/18 07:00 EKG Interpretations (text) EKG shows atrial fibrillation with a rapid ventricular response. Assessment and Plan Plan: Assessment and plan #1 atrial fibrillation with rapid ventricular response, appears to be of new onset. #2 history of supraventricular tachycardia with 2 prior ablation procedures. #3 hypertension #4 diabetes Plan We will obtain an echocardiogram with Doppler study to assess the patient's LV function. If his LV function is normal, we will give the patient a dose of Rythmol now. He is currently on IV heparin. We will also start the patient on a statin in view of him being diabetic. We will look into one of the newer anticoagulants as well. Further recommendations to follow. DNP note has been reviewed, I agree with a documented findings and plan of care. Patient was seen and examined.
[2018-01-12] MEDS ORDERED: PROPAFENONE 150 MG TAB PO STA (12:20)
[2018-01-12] MEDS ORDERED: APIXABAN 5 MG TAB PO ONE (14:30)
[2018-01-12 15:24] LABS: Creatine Kinase 27 U/L (55-170)
[2018-01-12 15:38] LABS: Creatine Kinase MB 1.1 ng/mL (0.0-2.4); Troponin I <0.012 ng/mL (0.000-0.034)
[2018-01-12 17:01] LABS: Glucose,Whole Blood 382 mg/dL (75-99)
[2018-01-12] MEDS ORDERED: PANTOPRAZOLE 40 MG TABLET PO PRN (17:19)
[2018-01-12] MEDS ORDERED: ALBUTEROL NEBULIZED 2.5 MG/3 ML INHALATION PRN (17:19)
[2018-01-12] MEDS: traMADol-ACETAMINOP 37.5-325MG 1 EACH TAB PO PRN (17:47)
[2018-01-12] MEDS: DILTIAZEM 50 MG in SODIUM CHLORIDE 0.9% 40 ML IV SCH (17:48)
[2018-01-12] MEDS: INSULIN ASPART 100 UNIT/ML 1 ML 10 ML VIAL SQ SCH ×2 (17:49→21:16)
[2018-01-12 20:16] LABS: Creatine Kinase 23 U/L (55-170)
[2018-01-12 20:27] LABS: Creatine Kinase MB 0.9 ng/mL (0.0-2.4); Troponin I <0.012 ng/mL (0.000-0.034)
[2018-01-12] MEDS: APIXABAN 5 MG TAB PO SCH (20:28)
--- NOTE | 2018-01-12 20:56 | ECHOF ---
Referral Reason:afib MEASUREMENTS -------- HEIGHT: 175.3 cm WEIGHT: 88.9 kg BP: IVSd: 1.3 cm (0.6 - 1.1) LVIDd: 3.3 cm (3.9 - 5.3) LVPWd: 1.4 cm (0.6 - 1.1) IVSs: 1.6 cm LVIDs: 1.7 cm LVPWs: 2.4 cm LAESV Index (A-L): 20.74 ml/m Ao Diam: 3.4 cm (2.0 - 3.7) AV Cusp: 2.2 cm (1.5 - 2.6) LA Diam: 3.3 cm (2.7 - 3.8) RAP: 5.00 mmHg RVSP: 20.15 mmHg FINDINGS -------- Atrial fibrillation. This was a technically good study. The left ventricular size is normal. There is mild concentric left ventricular hypertrophy. Overa ll left ventricular systolic function is normal with, an EF between 55 - 60 %. The right ventricle is normal in size and function. Normal LA size by volume 22+/-6 ml/m2. The right atrium is normal in size. The aortic valve is trileaflet, and appears structurally normal. No aortic stenosis or regurgitation. There is trace mitral regurgitation. Trace tricuspid regurgitation present. The right ventricular systolic pressure, as measured by Dopp ler, is 20.15mmHg. Pulmonic valve appears structurally normal. The aortic root size is normal. There is a trivial pericardial effusion present. CONCLUSIONS -------- 1. Atrial fibrillation. 2. This was a technically good study. 3. The left ventricular size is normal. 4. There is mild concentric left ventricular hypertrophy. 5. Overall left ventricular systolic function is normal with, an EF between 55 - 60 %. 6. The right ventricle is normal in size and function. 7. Normal LA size by volume 22+/-6 ml/m2. 8. The right atrium is normal in size. 9. The aortic valve is trileaflet, and appears structurally normal. No aortic stenosis or regurgitati on. 10. There is trace mitral regurgitation. 11. Trace tricuspid regurgitation present. 12. The right ventricular systolic pressure, as measured by Doppler, is 20.15mmHg. 13. Pulmonic valve appears structurally normal. 14. The aortic root size is normal. 15. There is a trivial pericardial effusion present. [employer]: Desiree Klein RDCS
[2018-01-12 20:59] LABS: Glucose,Whole Blood 184 mg/dL (75-99)
[2018-01-12] MEDS ORDERED: ATORVASTATIN 40 MG TAB PO SCH (21:00)
[2018-01-12] MEDS: metFORMIN 500 MG TAB PO SCH (21:15)
--- NOTE | 2018-01-12 22:28 | P.HPIM ---
History of Present Illness H&P Date: 01/12/18 Chief Complaint: Palpitations Patient is 62-year-old male with a known history of hypertension, diabetes type 2, SVT. With history of ablation and multiple other medical problems came to ER with complaints of heart racing up fast and was admitted to the regular. Patient woke up with irregular heartbeat in the morning. Patient did workout yesterday and was feeling good otherwise. EKG showed a displaced with rapid ventricular rate. Patient did have periods history of ablation 2. Patient has not have been taking his blood pressure medications due to hypotension. No complaints of fever or chills. No recent illnesses or sick contacts or travel. Patient did have nausea and no VOMITING. Patient did have dizziness. No headache. EKG showed atrial fibrillation with rapid ventricular rate Patient was started on IV Cardizem and heparin drip. Currently patient is maintaining sinus rhythm. Chest x-ray showed no acute cardio pulmonary process TSH 2.03 and free T4 is 1.18 Review of Systems Constitutional: Patient denies any fever or chills . No generalized weakness or weight loss. Abdomen: Patient denied nausea vomiting and diarrhea and abdominal pain. Cardiovascular: Chest pain no shortness of breath. Heart racing up fast. Respiratory: patient denied any cough is from production. No shortness of breath Neurologic: Patient denied any numbness or tingling headache. Musculoskeletal: Patient denies any complaints of joint swelling or deformity. Skin: Negative Psychiatric: Negative Endocrine: No heat or cold intolerance. No recent weight gain. Genitourinary: No dysuria or hematuria. All other 14 point ROS negative except the above Past Medical History Past Medical History: Diabetes Mellitus, GERD/Reflux, Hypertension, Supraventricular Tachycardia (SVT) Additional Past Medical History / Comment(s): SVT, atrial tachycardia, NIDDM type II, anemia, gout, bronchitis, possible polymalagia-on steroids at this time. History of Any Multi-Drug Resistant Organisms: None Reported Past Surgical History: Ablation, Tonsillectomy Additional Past Surgical History / Comment(s): 12/30/16 cardiac ablation, prior cardiac ablation, colonoscopy, detached retina right eye surgery Past Anesthesia/Blood Transfusion Reactions: No Reported Reaction Smoking Status: Never smoker - Past Family History Father Family Medical History: Cancer, Diabetes Mellitus, Hypertension Additional Family Medical History / Comment(s): CABGx3 when he was in his 80s, Bladder Ca, Lung Ca, paratid cancer. Father at age 90yrs. Mother Family Medical History: Dementia Additional Family Medical History / Comment(s): Brain aneurysm, PAD, PVD. Mother at age 86yrs. Medications and Allergies Home Medications Medication Instructions Recorded Confirmed Type Allopurinol [Zyloprim] 200 mg PO QAM 09/03/17 01/12/18 History Lisinopril [Zestril] 10 mg PO DAILY 09/03/17 01/12/18 History Pantoprazole Sodium [Protonix] 40 mg PO DAILY PRN 09/03/17 01/12/18 History metFORMIN HCL [Glucophage] 1,000 mg PO BID 09/03/17 01/12/18 History Albuterol Nebulized [Ventolin 2.5 mg INHALATION Q6H PRN 12/03/17 01/12/18 History Nebulized] predniSONE 15 mg PO BID 12/03/17 01/12/18 History Aspirin 81 mg PO DAILY #31 chewable 12/30/17 01/12/18 Rx Verapamil Sr [Isoptin Sr] 240 mg PO DAILY #90 tablet.er 12/31/17 01/12/18 Rx Ferrous Sulfate [Feosol] 325 mg PO DAILY 01/12/18 01/12/18 History traMADol HCL/ACETAMINOPHEN 1 tab PO Q8H PRN 01/12/18 01/12/18 History [Ultracet 37.5-325] Allergies Allergy/AdvReac Type Severity Reaction Status Date / Time No Known Allergies Allergy Verified 01/12/18 07:19 Physical Exam Vitals: Vital Signs Temp Pulse Resp BP Pulse Ox 01/12/18 12:19 94 16 115/74 100 01/12/18 10:53 104 H 16 107/70 99 01/12/18 10:06 122 H 16 117/68 98 01/12/18 09:00 123 H 16 126/74 97 01/12/18 08:05 130 H 16 135/79 97 01/12/18 06:57 97.9 F 97 18 137/94 98 Intake and Output 01/11/18 01/12/18 01/12/18 22:59 06:59 14:59 Other: Weight 88.904 kg PHYSICAL EXAMINATION: Patient is lying in the bed comfortably, no acute distress, awake alert and oriented.. HEENT: Normocephalic. Neck is supple. Pupils reactive. Nostrils clear. Oral cavity is moist. Ears reveal no drainage. Neck reveals no JVD, carotid bruits, or thyromegaly. CHEST EXAMINATION: Trachea is central. Symmetrical expansion. Lung caicedo clear to auscultation and percussion. CARDIAC: Normal S1, S2 with no gallops. No murmurs ABDOMEN: Soft. Bowel sounds normal. No organomegaly. No abdominal bruits. Extremities: reveal no edema. No clubbing or cyanosis Neurologically awake, alert, oriented x3 with well-coordinated movements. No focal deficits noted Skin: No rash or skin lesions. Psychiatric: Coperative. Nonsuicidal Musculoskeletal: No joint swelling or deformity. Normal range of motion. Results CBC & Chem 7: 01/12/18 07:00 01/12/18 07:00 Labs: Abnormal Lab Results - Last 24 Hours (Table) 01/12/18 01/12/18 01/12/18 Range/Units 07:00 07:00 07:00 RBC 4.20 L (4.30-5.90) m/uL Hgb 11.2 L (13.0-17.5) gm/dL Hct 32.7 L (39.0-53.0) % MCV 77.9 L (80.0-100.0) fL RDW 17.0 H (11.5-15.5) % Creatinine 0.53 L (0.66-1.25) mg/dL Glucose 242 H (74-99) mg/dL Total Creatine Kinase 42 L (55-170) U/L Total Protein 6.0 L (6.3-8.2) g/dL Thrombosis Risk Factor Assmnt - Choose All That Apply Any of the Below Risk Factors Present?: Yes Each Factor Represents 1 point: Obesity (BMI >25) Other Risk Factors: Yes Each Risk Factor Represents 2 Points: Age 61-74 years Other congenital or acquired thrombophilia - If yes, enter type in comment: No Thrombosis Risk Factor Assessment Total Risk Factor Score: 3 Thrombosis Risk Factor Assessment Level: Moderate Risk Assessment and Plan Assessment: New onset atrial fibrillation with rapid ventricular rate. Currently converted back to sinus rhythm. On Cardizem drip History of SVT since post ablation 2 Diabetes type 2. [id number] Hypertension Gout Possible polymyalgia on steroids Microcytic anemia hemoglobin 11.7. History of detached retina right eye surgery Plan: Patient will be continued on telemetry monitoring. Patient was started on Cardizem drip. Continued with the heparin currently changed to oral anticoagulant. Cardiology is following. 2-D echocardiogram was ordered. Further recommendations based on the clinical course. Time with Patient: Greater than 30
[2018-01-13] MEDS: traMADol-ACETAMINOP 37.5-325MG 1 EACH TAB PO PRN ×2 (01:32→09:02)
[2018-01-13] MEDS: DILTIAZEM 50 MG in SODIUM CHLORIDE 0.9% 40 ML IV SCH (01:33)
[2018-01-13 03:10] LABS: Hemoglobin A1C 8.7 % (4.0-6.0)
[2018-01-13 05:54] LABS: Glucose,Whole Blood 95 mg/dL (75-99)
[2018-01-13] MEDS: INSULIN ASPART 100 UNIT/ML 1 ML 10 ML VIAL SQ SCH ×2 (06:05→11:55)
[2018-01-13 06:39] LABS: Anisocytosis Slight; Basophils % (A) 0 %; Eosinophils # (A) 0.1 k/uL (0-0.7); Eosinophils % (A) 1 %; HGB 10.7 gm/dL (13.0-17.5); Lymphocytes # (A) 2.2 k/uL (1.0-4.8); Lymphocytes % (A) 31 %; MCH 26.2 pg (25.0-35.0); MCHC 32.6 g/dL (31.0-37.0); MCV 80.4 fL (80.0-100.0); Mean Platelet Volume 6.9; Microcytosis Slight; Monocytes # (A) 0.5 k/uL (0-1.0); Monocytes % (A) 7 %; Neutrophils # (A) 4.2 k/uL (1.3-7.7); Neutrophils % (A) 59 %; Platelet Count 343 k/uL (150-450); Poikilocytosis Slight; RDW 17.3 % (11.5-15.5); WBC 7.2 k/uL (3.8-10.6)
[2018-01-13 07:15] LABS: Anion Gap 9 mmol/L; Blood Urea Nitrogen 12 mg/dL (9-20); Calcium 9.4 mg/dL (8.4-10.2); Carbon Dioxide 31 mmol/L (22-30); Chloride 102 mmol/L (98-107); Cholesterol 160 mg/dL (<200); Glucose 89 mg/dL (74-99); HDL Cholesterol 30 mg/dL (40-60); LDL Cholesterol,Calculated 105 mg/dL (0-99); Potassium 4.1 mmol/L (3.5-5.1); Sodium 142 mmol/L (137-145); Triglycerides 126 mg/dL (<150)
[2018-01-13 08:53] VITALS: RESP 16; TEMP 97.6
[2018-01-13] MEDS ORDERED: ALLOPURINOL 100 MG TAB PO SCH (09:00)
[2018-01-13] MEDS ORDERED: ASPIRIN 325 MG TAB PO SCH (09:00)
[2018-01-13] MEDS: APIXABAN 5 MG TAB PO SCH (09:01)
[2018-01-13] MEDS: metFORMIN 500 MG TAB PO SCH (09:01)
[2018-01-13 11:53] LABS: Glucose,Whole Blood 90 mg/dL (75-99)
[2018-01-13 11:56] VITALS: BP 131/75; PULSE 106
--- NOTE | 2018-01-13 13:10 | P.PN ---
Subjective Progress Note Date: 01/13/18 This is a pleasant 62-year-old gentleman who follows regularly with Dr. Mcdaniel in the office. He has been diagnosed in the past with supraventricular tachycardia for which she has undergone 2 ablations in the past. Patient does have history of diabetes, hypertension. Current home medications include Glucophage thousand milligrams twice a day, verapamil 240 mg daily, Protonix, lisinopril 10 mg daily which according to the patient was recently discontinued because of hypotension, iron tablet daily, and aspirin 81 mg daily. Patient states overall he was doing fairly well, he worked outside yesterday, feeling great. This morning patient states that he felt his heart race fast and go irregular. For this reason he came to the emergency room for further evaluation. EKG on arrival here showed atrial fibrillation with a rapid ventricular response. Patient was initiated on IV Cardizem and heparin. At the time of my examination he continues to be in atrial fibrillation, heart rate in the 90s. Chest x-ray shows no acute cardiopulmonary process with no significant change from prior. White blood cell count is normal, hemoglobin 11.2, platelet count 387. Sodium 138, potassium 4.4, BUN 16, creatinine 0.5. Magnesium level I.7, troponin 0.012. TSH 2.03, free T4 1.18. 01/13/2018 Patient was given a one-time dose of Rythmol 600 mg yesterday converted to normal sinus rhythm and remains in a normal sinus rhythm today. Echocardiogram with Doppler study was performed which revealed an ejection fraction of 55-60%. Hemodynamically stable. From cardiology's perspective, he may be able to be discharged home today. He has a follow-up appointment in the office with Dr. Alvarado which she's been advised to keep. Patient's additional medications other than what he was previously taking at home include Eliquis 5 mg by mouth twice a day and flecainide 50 mg by mouth twice a day. Objective - Vital Signs Vital signs: Vital Signs Temp 97.6 F 01/13/18 08:50 Pulse 106 H 01/13/18 11:30 Resp 16 01/13/18 11:30 BP 131/75 01/13/18 11:30 Pulse Ox 96 01/13/18 11:30 Intake & Output 01/12/18 01/13/18 01/13/18 18:59 06:59 18:59 Intake Total 240 38.75 240 Balance 240 38.75 240 Weight 91.3 kg Intake: Intake, IV Titration 38.75 Amount Diltiazem 50 mg In Sodium 38.75 Chloride 0.9% 40 ml @ 5 MG/HR 5 mls/hr IV .Q10H NICOL Rx#:[id number] Oral 240 240 Other: # Voids 1 - Exam PHYSICAL EXAMINATION: HEENT: Head is atraumatic, normocephalic. Pupils equal, round. Neck is supple. There is no elevated jugular venous pressure. HEART EXAMINATION: Heart S1, S2 normal. No murmur or gallop heard. CHEST EXAMINATION: Lungs are clear to auscultation and precussion. No chest wall tenderness is noted on palpation or with deep breathing. ABDOMEN: Soft, nontender. Bowel sounds are heard. No organomegaly noted. EXTREMITIES: 2+ peripheral pulses with no evidence of peripheral edema and no calf tenderness noted. NEUROLOGIC patient is awake, alert and oriented -3. . - Labs CBC & Chem 7: 01/13/18 06:20 01/13/18 06:20 Labs: Abnormal Lab Results - Last 24 Hours (Table) 01/12/18 01/12/18 01/12/18 Range/Units 14:41 16:59 19:10 RBC (4.30-5.90) m/uL Hgb (13.0-17.5) gm/dL Hct (39.0-53.0) % RDW (11.5-15.5) % Carbon Dioxide (22-30) mmol/L Creatinine (0.66-1.25) mg/dL POC Glucose (mg/dL) 382 H (75-99) mg/dL Hemoglobin A1c (4.0-6.0) % Total Creatine Kinase 27 L 23 L (55-170) U/L LDL Cholesterol, Calc (0-99) mg/dL HDL Cholesterol (40-60) mg/dL 01/12/18 01/12/18 01/13/18 Range/Units 19:10 20:58 06:20 RBC (4.30-5.90) m/uL Hgb (13.0-17.5) gm/dL Hct (39.0-53.0) % RDW (11.5-15.5) % Carbon Dioxide 31 H (22-30) mmol/L Creatinine 0.57 L (0.66-1.25) mg/dL POC Glucose (mg/dL) 184 H (75-99) mg/dL Hemoglobin A1c 8.7 H (4.0-6.0) % Total Creatine Kinase (55-170) U/L LDL Cholesterol, Calc 105 H (0-99) mg/dL HDL Cholesterol 30 L (40-60) mg/dL 01/13/18 Range/Units 06:20 RBC 4.10 L (4.30-5.90) m/uL Hgb 10.7 L (13.0-17.5) gm/dL Hct 33.0 L (39.0-53.0) % RDW 17.3 H (11.5-15.5) % Carbon Dioxide (22-30) mmol/L Creatinine (0.66-1.25) mg/dL POC Glucose (mg/dL) (75-99) mg/dL Hemoglobin A1c (4.0-6.0) % Total Creatine Kinase (55-170) U/L LDL Cholesterol, Calc (0-99) mg/dL HDL Cholesterol (40-60) mg/dL Assessment and Plan Plan: Assessment and plan #1 atrial fibrillation with rapid ventricular response, appears to be of new onset. #2 history of supraventricular tachycardia with 2 prior ablation procedures. #3 hypertension #4 diabetes Plan Echocardiogram with Doppler study was performed which revealed a normal left ventricular systolic function. Patient was given one dose of Rythmol in the emergency room, converted to normal sinus rhythm and remains in normal sinus rhythm this morning. From cardiology's perspective, he may be able to be discharged home today. He has a follow-up appointment with Dr. Mcdaniel in the office post discharge. We will add Eliquis 5 mg one tablet by mouth twice a day and second night 50 mg one tablet by mouth twice a day to his medication regime. DNP note has been reviewed, I agree with a documented findings and plan of care. Patient was seen and examined.
[2018-01-13] MEDS ORDERED: FLECAINIDE 50 MG TAB PO SCH (13:15)
--- NOTE | 2018-01-15 07:38 | DS ---
DISCHARGE SUMMARY ADMISSION: January 12, 2018. DATE OF DISCHARGE: January 13, 2018. FINAL DIAGNOSES: 1. Paroxysmal atrial fibrillation rapid ventricular rate, now in sinus rhythm sinus rhythm. 2. Diabetes mellitus type 2 on oral hypoglycemics. 3. Gastroesophageal reflux disease. 4. Essential hypertension. HOSPITAL COURSE: This patient presented with atrial fibrillation with rapid ventricular rate. Did revert back to sinus rhythm. The patient has had 2 ablations in the past. Patient did get Rythmol is also started on Eliquis. 2-D echocardiogram showed EF of 55-60%. PHYSICAL EXAMINATION: On exam lungs are clear. Cardiovascular first and second sounds are normal. CONSULTATION: Dr. Talia Perkins. DISCHARGE MEDICATIONS: 1. Allopurinol 200 mg a day. 2. Protonix 40 mg a day. 3. Glucophage 1000 mg p.o. b.i.d. 4. Ventolin 2.5 q.6h p.r.n. 5. Prednisone 50 mg b.i.d. 6. Aspirin 81 mg a day. 7. Iron 325 mg a day. 8. Ultracet 1 tablet q.8h p.r.n. strength is 37.5/325. 9. Eliquis 5 mg p.o. b.i.d. 10.Lipitor 40 mg p.o. q.h.s. 11.Flecainide 50 mg q.12. Home medications: Verapamil SR 240 mg a day. Follow up with Cardiology in 1 week. Follow up with Dr. Gandhi in 3 days. MMODL / IJN: [id number] /
== END 2018-01-13 16:48 | disposition home or self-care (01) | DRG 310 ==
LOC: EC 06:49 → 6SEL 08:34
PROVIDERS: ADMIT Internal Medicine; ATTEND Hospitalist
DX: I48.0 Paroxysmal atrial fibrillation (principal); E11.9 Type 2 diabetes mellitus without complications; I10 Essential (primary) hypertension; K21.9 Gastro-esophageal reflux disease without esophagitis; D50.9 Iron deficiency anemia, unspecified; M10.9 Gout, unspecified; M35.3 Polymyalgia rheumatica; Z79.84 Long term (current) use of oral hypoglycemic drugs; Z79.82 Long term (current) use of aspirin; Z79.52 Long term (current) use of systemic steroids; Z79.899 Other long term (current) drug therapy; Z83.3 Family history of diabetes mellitus; Z82.49 Family history of ischemic heart disease and other diseases of the circulatory system; Z80.52 Family history of malignant neoplasm of bladder; Z80.1 Family history of malignant neoplasm of trachea, bronchus and lung
CPT/HCPCS: 36415; 71046; 80048; 80053; 80061; 82550; 82553; 83036; 83735; 84439; 84443; 84484; 85025; 85610; 85730; 93005; 93306; 94760; 96365; 96366; 96368; 96376; 99291

== ENCOUNTER → 2018-01-27 | Outpatient (CLI) | payer OTHER ==
[2018-01-27 10:00] LABS: Anisocytosis Slight; HCT 33.9 % (39.0-53.0); HGB 11.1 gm/dL (13.0-17.5); Hypochromasia Slight; MCHC 32.8 g/dL (31.0-37.0); MCV 82.1 fL (80.0-100.0); Mean Platelet Volume 6.5; Platelet Count 378 k/uL (150-450); Poikilocytosis Slight; RBC 4.13 m/uL (4.30-5.90); RDW 17.9 % (11.5-15.5); WBC 10.2 k/uL (3.8-10.6)
[2018-01-27 10:36] LABS: ALT 33 U/L (21-72); AST 27 U/L (17-59); Albumin 3.9 g/dL (3.5-5.0); Alkaline Phosphatase 97 U/L (38-126); Anion Gap 16 mmol/L; Blood Urea Nitrogen 12 mg/dL (9-20); C Reactive Protein 75.3 mg/L (<10.0); Carbon Dioxide 25 mmol/L (22-30); Chloride 101 mmol/L (98-107); Cholesterol 168 mg/dL (<200); Glucose 175 mg/dL (74-99); HDL Cholesterol 38 mg/dL (40-60); LDL Cholesterol,Calculated 102 mg/dL (0-99); Potassium 4.4 mmol/L (3.5-5.1); Sodium 142 mmol/L (137-145); Total Bilirubin 0.7 mg/dL (0.2-1.3); Total Protein 6.2 g/dL (6.3-8.2); Triglycerides 141 mg/dL (<150); Uric Acid 3.9 mg/dL (3.5-8.5)
[2018-01-27 10:56] LABS: Prostate Specific Antigen 0.51 ng/mL (0.00-4.00)
--- NOTE | 2018-01-27 12:41 | XR ---
EXAMINATION TYPE: XR chest 2V DATE OF EXAM: 01/27/2018 COMPARISON: 01/12/2018 INDICATION: Pleural dynea TECHNIQUE: Frontal and lateral views of the chest are obtained. FINDINGS: The heart size is normal. The pulmonary vasculature is normal. The lungs are clear. IMPRESSION: 1. No acute pulmonary process.
--- NOTE | 2018-01-27 12:43 | XR ---
EXAMINATION TYPE: XR thoracic spine 2V DATE OF EXAM: 01/27/2018 COMPARISON: NONE HISTORY: Body pain TECHNIQUE: Three-view thoracic spine FINDINGS: There is a compression deformity at T5. No posterior wall displacement is evident. Some mil d disc space narrowing is present within the mid thoracic spine. There are 12 thoracic type vertebral bodies. The pedicles are intact. Alignment is normal. IMPRESSION: 1. Compression deformity T5 of unknown etiology 2. Mild degenerative disc changes mid thoracic spine
--- NOTE | 2018-01-27 12:44 | XR ---
EXAMINATION TYPE: XR lumbar spine 2 or 3V DATE OF EXAM: 01/27/2018 COMPARISON: NONE HISTORY: Lumbar pain, body pain TECHNIQUE: Three-view lumbar spine FINDINGS: There 5 lumbar-type vertebral bodies. Pedicles are intact. Large spur is present to the rig ht at L1-L2. Loss of disc height and vacuum disc phenomenon is present L4-5. There is posterior loss of disc height L5-S1. Mild diffuse loss of disc height is present L2-3 L3-4. Spondylosis is present. IMPRESSION: 1. Degenerative changes are within the lumbar spine discussed above
--- NOTE | 2018-01-27 12:46 | XR ---
EXAMINATION TYPE: XR ribs bilateral DATE OF EXAM: 01/27/2018 COMPARISON: NONE HISTORY: Rib pain, body pain TECHNIQUE: 2 view right ribs, two-view left RIBS FINDINGS: T12 ribs are rudimentary. No displaced rib fractures are identified. No pneumothorax is caty dent on these images. Note is made of the T5 compression deformity. IMPRESSION: 1. Normal bilateral ribs. 2. Compression deformity at T5
[2018-01-27 13:11] LABS: Erythrocyte Sedimentation Rate 91 mm/hr (0-15)
[2018-01-27 17:23] LABS: Hemoglobin A1C 8.2 % (4.0-6.0)
== END | disposition home or self-care (01) ==
LOC: LABWHC1 09:28
PROVIDERS: ATTEND Family Medicine
DX: M47.814 Spondylosis without myelopathy or radiculopathy, thoracic region (principal); M43.8X4 Other specified deforming dorsopathies, thoracic region; M47.817 Spondylosis without myelopathy or radiculopathy, lumbosacral region; R07.81 Pleurodynia; Z00.00 Encounter for general adult medical examination without abnormal findings; E11.65 Type 2 diabetes mellitus with hyperglycemia; M35.3 Polymyalgia rheumatica; M10.9 Gout, unspecified
CPT/HCPCS: 36415; 71046; 71110; 72070; 72100; 80053; 80061; 82043; 82570; 83036; 84153; 84550; 85027; 85652; 86140

== ENCOUNTER → 2018-01-31 | Outpatient (CLI) | payer OTHER ==
[2018-01-31 11:44] LABS: Anisocytosis Slight; HCT 34.6 % (39.0-53.0); HGB 11.2 gm/dL (13.0-17.5); Hypochromasia Moderate; MCH 26.7 pg (25.0-35.0); MCHC 32.3 g/dL (31.0-37.0); MCV 82.5 fL (80.0-100.0); Mean Platelet Volume 6.4; Platelet Count 409 k/uL (150-450); Poikilocytosis Slight; RDW 17.6 % (11.5-15.5); WBC 8.8 k/uL (3.8-10.6)
[2018-01-31 17:09] LABS: Iron Saturation 9.09 (15.00-50.00)
== END | disposition home or self-care (01) ==
LOC: LABWHC1 11:28
PROVIDERS: ATTEND Family Medicine
DX: R89.9 Unspecified abnormal finding in specimens from other organs, systems and tissues (principal)
CPT/HCPCS: 36415; 82728; 83540; 83550; 85027

== ENCOUNTER 2018-02-23 07:26 | Day surgery (SDC) | payer OTHER ==
[2018-02-19 11:00] VITALS: BMI 27.8
[~2018-02-23 07:26] MED LIST: LACTATED RINGERS 1,000 ML IV SCH
[2018-02-23] MEDS ORDERED: LIDOCAINE 1% 20 ML VIAL (10MG/ML) FOR IV START INTRADERMA ONE (08:00)
[2018-02-23 08:06] VITALS: TEMP 97
[2018-02-23 08:07] LABS: Glucose,Whole Blood 114 mg/dL (75-99)
[2018-02-23 08:09] VITALS: RESP 16
[2018-02-23] MEDS ORDERED: PROPOFOL 10 MG/ML 20 ML VIAL IV ONE (08:53)
[2018-02-23] MEDS ORDERED: fentaNYL (PF) 50 MCG/ML 2 ML AMP IVP ONE ×2 (09:35→09:44)
--- NOTE | 2018-02-23 09:35 | P.PCN ---
Date of Procedure: 02/23/18 Procedure(s) Performed: Procedure: 1. Esophagogastroduodenoscopy and biopsy. 2. Total colonoscopy. Preoperative diagnosis: Iron deficiency anemia. Postoperative diagnosis: 1. Sliding hiatal hernia with no obvious esophagitis or complicated reflux disease. 2. Mild antral gastritis. 3. Sigmoid diverticulosis with no evidence of acute diverticulitis, strictures, polyps or cancer. Preparation: HalfLytely prep. Sedation: Was provided by anesthesia. Brief clinical history: The patient is a 62-year-old male who is scheduled for this evaluation because of iron deficiency anemia. No history of overt bleeding. He has no upper GI complaints, other abdominal symptoms or change in bowel habits. His last colonoscopy was around 11 years ago. Procedure: With the patient on his left lateral decubitus position and after informed consent and adequate sedation, I passed the Olympus-GIF 160 video upper endoscope through the cricopharyngeus down the esophagus. GE junction was around 40 cm from the incisors and there was a 1-2 cm sliding hiatal hernia but no obvious esophagitis or complicated reflux disease. The endoscope was then passed into the stomach which was insufflated with air and inspected in detail including the retroflex view in the cardia. There was some mottling and erythema in the antrum but no ulcers or erosions. Pyloric channel, duodenal bulb, post bulbar area and descending duodenum appeared within normal limits. Because of his anemia, I obtained biopsies from the duodenum, antrum and esophagus then the endoscope was withdrawn and I proceeded with the colonoscopy. Perianal area did not show any fissures or fistulas. There was skin redundancy , fleshy skin tags and external hemorrhoids. There were no masses felt on digital rectal examination. The Olympus CFQ 160L video colonoscope was then inserted in the rectum in the usual fashion and advanced to the cecum. There were several diverticular orifices seen scattered in the sigmoid but I saw no evidence of acute diverticulitis or strictures. The mucosa appeared healthy. No polyps or tumors were seen or any evidence of bleeding. I retroflexed the endoscope in the rectum before the endoscope was withdrawn. The patient tolerated the procedure well. Plan: The patient was reassured. Will await biopsy results. Discussed dietary measures. If a GI source of bleeding remains to be suspected as the cause of his iron deficiency anemia, consideration can be given for a capsule endoscopy. He will follow up with you as planned and I will be happy to see in the future. For screening colonoscopy, I would recommend repeat colonoscopy in 10 years.
[2018-02-23 10:12] VITALS: BP 147/87; PULSE 102
== END 2018-02-23 10:17 | disposition home or self-care (01) ==
LOC: ORWHC2ENDO 07:26
DX: K29.50 Unspecified chronic gastritis without bleeding (principal); D50.9 Iron deficiency anemia, unspecified; K44.9 Diaphragmatic hernia without obstruction or gangrene; K57.30 Diverticulosis of large intestine without perforation or abscess without bleeding; K64.4 Residual hemorrhoidal skin tags; M19.90 Unspecified osteoarthritis, unspecified site; L91.8 Other hypertrophic disorders of the skin; E11.9 Type 2 diabetes mellitus without complications; I48.91 Unspecified atrial fibrillation; I47.1 Supraventricular tachycardia; I10 Essential (primary) hypertension; K21.9 Gastro-esophageal reflux disease without esophagitis; Z79.82 Long term (current) use of aspirin; Z79.01 Long term (current) use of anticoagulants; Z79.84 Long term (current) use of oral hypoglycemic drugs; Z79.899 Other long term (current) drug therapy
CPT/HCPCS: 88305; 43239; 45378; J3010; J2704

== ENCOUNTER 2018-02-24 19:48 | Emergency (ER) | payer OTHER ==
[2018-02-24] MEDS ORDERED: MORPHINE SULFATE 2 MG/ML SYRINGE IVP STA (20:14)
--- NOTE | 2018-02-24 20:45 | ED ---
Back Pain HPI - General Chief Complaint: Back Pain/Injury Stated Complaint: Bakc pain Time Seen by Provider: 02/24/18 20:03 Source: EMS Limitations: no limitations - History of Present Illness Initial Comments: 62-year-old male patient presents to the emergency department today for evaluation of increased mid back pain and decreased sensation and movement to the lower extremities. Patient was diagnosed with a compression fracture of T5 on chest xray in August, a more recent xray showed worsening of the compression fracture and patient is scheduled for MRI next week. Patient states that he has had increased burning pain to his mid back throughout the day today. Patient states when he got home from work he sat in his recliner and started to have involuntary spasms of the right lower extremity. Patient states that he attempted to stand but was unable to move his legs. He states that he has increased numbness from the upper abdomen down to his toes. Denies any loss of bowel or bladder control. States he last urinated around 5 PM. Denies any new injuries to the back. Patient denies any recent rash, fever, chills, shortness breath, chest pain, abdominal pain, nausea, vomiting, back pain, dizziness, hematuria, dysuria, urinary urgency, urinary frequency, headache, visual changes, or any other complaints. - Related Data Home Medications Medication Instructions Recorded Confirmed Allopurinol [Zyloprim] 200 mg PO QAM 09/03/17 02/24/18 Pantoprazole Sodium [Protonix] 40 mg PO DAILY PRN 09/03/17 02/24/18 metFORMIN HCL [Glucophage] 1,000 mg PO BID 09/03/17 02/24/18 predniSONE 15 mg PO BID 12/03/17 02/24/18 traMADol HCL/ACETAMINOPHEN 1 tab PO Q8H PRN 01/12/18 02/24/18 [Ultracet 37.5-325] Warfarin Sodium [Coumadin] 5 mg PO DAILY 02/24/18 02/24/18 Previous Rx's Medication Instructions Recorded Verapamil HCl [Verapamil ER] 240 mg PO DAILY #90 tab 01/14/18 Allergies Allergy/AdvReac Type Severity Reaction Status Date / Time No Known Allergies Allergy Verified 02/24/18 20:03 Review of Systems ROS Statement: Those systems with pertinent positive or pertinent negative responses have been documented in the HPI. ROS Other: All systems not noted in ROS Statement are negative. Past Medical History Past Medical History: Diabetes Mellitus, GERD/Reflux, Hypertension, Supraventricular Tachycardia (SVT) Additional Past Medical History / Comment(s): SVT, atrial tachycardia, NIDDM type II, anemia, gout, bronchitis, possible polymalagia-on steroids at this time. History of Any Multi-Drug Resistant Organisms: None Reported Past Surgical History: Ablation, Tonsillectomy Additional Past Surgical History / Comment(s): 12/30/16 cardiac ablation, prior cardiac ablation, colonoscopy, detached retina right eye surgery Past Anesthesia/Blood Transfusion Reactions: No Reported Reaction Past Psychological History: No Psychological Hx Reported Smoking Status: Never smoker Past Alcohol Use History: None Reported Past Drug Use History: None Reported - Past Family History Father Family Medical History: Cancer, Diabetes Mellitus, Hypertension Additional Family Medical History / Comment(s): Bladder Ca, Lung Ca, paratid cancer. at age 90yrs. Mother Family Medical History: Dementia Additional Family Medical History / Comment(s): Brain aneurysm, PAD, PVD. Mother at age 86yrs. General Exam Limitations: no limitations General appearance: alert, in no apparent distress, other (This is a well- developed, well-nourished adult male patient in no acute distress. Vital signs upon presentation are temperature 98.1F, pulse 124, respirations 18, blood pressure 170/91, pulse ox 98% on room air.) Eye exam: Present: normal appearance, PERRL, EOMI. Absent: scleral icterus, conjunctival injection, periorbital swelling ENT exam: Present: normal exam, normal oropharynx, mucous membranes moist Respiratory exam: Present: normal lung sounds bilaterally. Absent: respiratory distress, wheezes, rales, rhonchi, stridor Cardiovascular Exam: Present: regular rate, normal rhythm, normal heart sounds. Absent: systolic murmur, diastolic murmur, rubs, gallop, clicks GI/Abdominal exam: Present: soft, normal bowel sounds. Absent: distended, tenderness, guarding, rebound, rigid Extremities exam: Present: normal inspection, full ROM, normal capillary refill. Absent: tenderness, pedal edema, joint swelling, calf tenderness Back exam: Present: normal inspection, vertebral tenderness (Upper thoracic tenderness), other (No step offs or bony deformity noted. ) Neurological exam: Present: alert, oriented X3, CN II-XII intact Expanded Sensory exam: Lower Extremity Light Touch: Abnormal Right, Abnormal Left Motor strength exam: RUE: 5, LUE: 5, RLE: 0, LLE: 0 Psychiatric exam: Present: normal affect, normal mood Skin exam: Present: warm, dry, intact, normal color. Absent: rash Course Vital Signs 02/24/18 02/24/18 02/24/18 19:55 21:49 23:04 Temperature 98.1 F 97.6 F Pulse Rate 124 H 123 H 128 H Respiratory 18 18 18 Rate Blood Pressure 170/91 155/78 144/77 O2 Sat by Pulse 98 99 95 Oximetry Medical Decision Making - Medical Decision Making 62-year-old male patient presented to the emergency department today for evaluation of decreased motor function and decreased sensation to his bilateral lower extremities. Patient has no compression fracture of T5 from August. We did order a stat MRI however patient was unable to tolerate lying flat despite administration of pain medications. We are unable to perform conscious sedation for the MRI due to not having the appropriate equipment available. Given patient's symptoms it is felt that he may be suffering from cord compression and therefore stat imaging deemed necessary. I did attempt transfer to [facility] however the ICU is full and they're unable to accept transfer related to this. I did speak to [facility] in [place] , spoke to the neurosurgeon Dr. Skaggs, she accepts transfer. She recommends transfer by [facility]. Labs have been sent to evaluate PT/INR, patient is taking Coumadin for an episode of atrial fibrillation after his last ablation for SVT. Last INR was 1.2 as he did stop the medication for colonoscopy and EGD yesterday. - Lab Data Result diagrams: 02/24/18 22:39 02/24/18 22:39 Lab Results 02/24/18 02/24/18 02/24/18 Range/Units 22:39 22:39 22:39 WBC 9.4 (3.8-10.6) k/uL RBC 3.87 L (4.30-5.90) m/uL Hgb 10.1 L (13.0-17.5) gm/dL Hct 31.0 L (39.0-53.0) % MCV 80.0 (80.0-100.0) fL MCH 26.1 (25.0-35.0) pg MCHC 32.7 (31.0-37.0) g/dL RDW 17.0 H (11.5-15.5) % Plt Count 452 H (150-450) k/uL Neutrophils % 77 % Lymphocytes % 14 % Monocytes % 7 % Eosinophils % 0 % Basophils % 0 % Neutrophils # 7.3 (1.3-7.7) k/uL Lymphocytes # 1.3 (1.0-4.8) k/uL Monocytes # 0.6 (0-1.0) k/uL Eosinophils # 0.0 (0-0.7) k/uL Basophils # 0.0 (0-0.2) k/uL Hypochromasia Slight Poikilocytosis Slight Anisocytosis Slight Microcytosis Slight PT 9.8 (9.0-12.0) sec INR 1.0 (<1.2) APTT 23.8 (22.0-30.0) sec Sodium 135 L (137-145) mmol/L Potassium 4.6 (3.5-5.1) mmol/L Chloride 93 L (98-107) mmol/L Carbon Dioxide 31 H (22-30) mmol/L Anion Gap 11 mmol/L BUN 14 (9-20) mg/dL Creatinine 0.53 L (0.66-1.25) mg/dL Est GFR (CKD-EPI)AfAm >90 (>60 ml/min/1.73 sqM) Est GFR (CKD-EPI)NonAf >90 (>60 ml/min/1.73 sqM) Glucose 186 H (74-99) mg/dL Calcium 9.5 (8.4-10.2) mg/dL Total Bilirubin 0.5 (0.2-1.3) mg/dL AST 36 (17-59) U/L ALT 38 (21-72) U/L Alkaline Phosphatase 132 H (38-126) U/L Total Protein 6.1 L (6.3-8.2) g/dL Albumin 3.8 (3.5-5.0) g/dL Disposition Clinical Impression: Spinal cord compression, Wedge compression fracture of T5 vertebra, Paralysis Disposition: OTHER INSTITUTION NOT DEFINED Condition: Critical Referrals: Perez Gandhi DO [Primary Care Provider] - 1-2 days - Out of Hospital Transfer - Req. Specs Out of Hospital Transfer - Requested Specifics: Other Emergency Center ([facility], CAT [facility])
[2018-02-24] MEDS ORDERED: ONDANSETRON 4 MG/2 ML VIAL IVP STA (20:48)
[2018-02-24] MEDS ORDERED: HYDROmorphone 0.5 MG/0.5 ML SYRINGE IVP STA ×3 (20:55→23:44)
[2018-02-24 22:53] LABS: Anisocytosis Slight; Basophils % (A) 0 %; Eosinophils % (A) 0 %; HGB 10.1 gm/dL (13.0-17.5); Hypochromasia Slight; Lymphocytes # (A) 1.3 k/uL (1.0-4.8); Lymphocytes % (A) 14 %; MCH 26.1 pg (25.0-35.0); MCHC 32.7 g/dL (31.0-37.0); Mean Platelet Volume 6.4; Microcytosis Slight; Monocytes # (A) 0.6 k/uL (0-1.0); Monocytes % (A) 7 %; Neutrophils # (A) 7.3 k/uL (1.3-7.7); Neutrophils % (A) 77 %; Platelet Count 452 k/uL (150-450); Poikilocytosis Slight; RBC 3.87 m/uL (4.30-5.90); WBC 9.4 k/uL (3.8-10.6)
[2018-02-24 23:04] LABS: ALT 38 U/L (21-72); AST 36 U/L (17-59); Albumin 3.8 g/dL (3.5-5.0); Alkaline Phosphatase 132 U/L (38-126); Anion Gap 11 mmol/L; Blood Urea Nitrogen 14 mg/dL (9-20); Calcium 9.5 mg/dL (8.4-10.2); Carbon Dioxide 31 mmol/L (22-30); Chloride 93 mmol/L (98-107); Glucose 186 mg/dL (74-99); Potassium 4.6 mmol/L (3.5-5.1); Sodium 135 mmol/L (137-145); Total Bilirubin 0.5 mg/dL (0.2-1.3); Total Protein 6.1 g/dL (6.3-8.2)
[2018-02-24 23:07] LABS: Partial Thromboplastin Time 23.8 sec (22.0-30.0); Prothrombin Time 9.8 sec (9.0-12.0)
[2018-02-24 23:37] VITALS: BP 154/91; PULSE 126; RESP 20; TEMP 98.2
== END 2018-02-25 00:03 | disposition other institution (70) ==
LOC: EC 19:48
DX: S24.102A Unspecified injury at T2-T6 level of thoracic spinal cord, initial encounter (principal); S22.050A Wedge compression fracture of T5-T6 vertebra, initial encounter for closed fracture; E11.9 Type 2 diabetes mellitus without complications; K21.9 Gastro-esophageal reflux disease without esophagitis; I10 Essential (primary) hypertension; M10.9 Gout, unspecified; I48.91 Unspecified atrial fibrillation; Z98.890 Other specified postprocedural states; Z79.01 Long term (current) use of anticoagulants; Z79.52 Long term (current) use of systemic steroids; Z79.84 Long term (current) use of oral hypoglycemic drugs; Z79.899 Other long term (current) drug therapy; X58.XXXA Exposure to other specified factors, initial encounter
CPT/HCPCS: 36415; 93005; 80053; 85025; 85610; 85730; 99285; 96374; 96375 ×2; 96376 ×2; J2405; J2270; J1170